=== PATIENT | female | born 2000 | race Asian ===

== ENCOUNTER 2021-04-15 16:52 | Emergency (ER) | payer OTHER ==
[~2021-04-15] VITALS: Ht 175.3 cm; Wt 64.9 kg
[2021-04-15 17:47] VITALS: BP 127/74
--- NOTE | 2021-04-15 19:01 | NUR ---
BIB SELF C/O INCREASE HR 120 S/P PFIZER BOOSTER X YESTERDAY. HR 115- 98 AT THIS TIME. PMH: DENIES
[2021-04-15 19:20] VITALS: BP 121/63
--- NOTE | 2021-04-15 19:26 | NUR ---
Patient discharged with v/s stable. Written and verbal after care instructions given and explained. Patient verbalized understanding. Ambulatory with steady gait. All questions addressed prior to discharge. Advised to follow up with PMD.
== END 2021-04-15 19:26 | disposition home or self-care (01) ==
LOC: MED 16:52
DX: R00.2 Palpitations (principal); R07.89 Other chest pain
CPT/HCPCS: 81025; 93005; 99283